=== PATIENT | female | born 1940 | race African-American/Black ===

== ENCOUNTER 2021-08-27 03:59 | Inpatient (IN) | payer MEDICARE, BC ==
[~2021-08-27] VITALS: Ht 180.3 cm; Wt 59.9 kg
[~2021-08-27 03:59] MED LIST: ASPI-1497 PO; LABE300T3 PO; VALS320T2 PO
[2021-08-27] MEDS ORDERED: LABETALOL 5MG/ML SYR 20 MG/4 ML SYRINGE IV ONE ×2 (05:30→11:45)
[2021-08-27 05:53] LABS: BASOPHILS % 0.9 % (0.0-2.0); EOSINOPHILS % 3.5 % (0.0-5.0); HEMATOCRIT. 34.9 % (36.0-48.0); HEMOGLOBIN. 11.2 g/dL (12.0-16.0); LYMPHOCYTES % 34.1 % (20.0-50.0); MEAN CORPUSCULAR HEMOGLOBIN 28.6 pg (28.0-32.0); MEAN CORPUSCULAR VOLUME 89.1 fL (81.0-99.0); MEAN PLATELET VOLUME 9.1 fl (7.4-10.4); MONOCYTES % 9.9 % (2.0-8.0); NEUTROPHILS % 51.6 % (40.0-76.0); PLATELET 279 x1000/uL (130-400); RED BLOOD CELL COUNT 3.91 mill/uL (4.2-5.4); RED CELL DISTRIBUTION WIDTH 16.6 % (11.6-14.6)
[2021-08-27 06:06] LABS: CHLORIDE 106 mEq/L (98-107)
[2021-08-27 06:21] LABS: T4 FREE 1.11 ng/dL (0.76-1.46)
[2021-08-27 12:00] VITALS: BP 187/90
[2021-08-27] MEDS ORDERED: CLONIDINE 0.1MG TABLET PO PRN (12:15)
[2021-08-27] MEDS ORDERED: ONDANSETRON HCL 4MG/2ML INJ IV PRN (12:15)
[2021-08-27] MEDS ORDERED: CARVEDILOL 12.5MG TABLET PO SCH (12:30)
[2021-08-27] MEDS ORDERED: POTASSIUM CHLORIDE 20MEQ TABLET SR PO SCH (12:30)
[2021-08-27] MEDS ORDERED: BENAZEPRIL 10MG TABLET PO SCH (12:30)
[2021-08-27] MEDS ORDERED: ENOXAPARIN 40MG/0.4ML SYR SUBCUT SCH (13:00)
[2021-08-27] MEDS ORDERED: NALOXONE HCL 0.4MG/ML VIAL IV PRN (13:00)
[2021-08-27] MEDS: ASPIRIN 81MG TABLET PO SCH (13:50)
[2021-08-27] MEDS ORDERED: PNEUMOCOCCAL VACCINE IM ONE (14:30)
[2021-08-27 15:16] VITALS: BP 187/90
[2021-08-27] MEDS ORDERED: ALLO100T PO (15:41)
[2021-08-27] MEDS ORDERED: FAMO20TA8 PO (15:41)
[2021-08-27] MEDS ORDERED: METO-396 PO (15:41)
[2021-08-27] MEDS ORDERED: DOCU100T PO (15:41)
[2021-08-27] MEDS ORDERED: LORA2ORA5 PO (15:41)
[2021-08-27] MEDS ORDERED: HYOS-26 MT (15:41)
[2021-08-27] MEDS ORDERED: TOPUD PO (15:41)
[2021-08-27] MEDS ORDERED: AMLO10TA80 PO (15:41)
[2021-08-27] MEDS ORDERED: APIX5TAB PO (15:41)
[2021-08-27] MEDS ORDERED: MULT-1116 MT (15:41)
[2021-08-27] MEDS ORDERED: MIRT-90 PO (15:41)
[2021-08-27] MEDS ORDERED: LOSA50TA41 PO (15:41)
[2021-08-27] MEDS ORDERED: MELA2.5T PO (15:41)
[2021-08-27] MEDS ORDERED: THIA100T88 PO (15:41)
[2021-08-27] MEDS ORDERED: HYOS-26 PO (15:41)
[2021-08-27 15:42] LABS: INR 1.1; PROTHROMBIN TIME 11.3 sec (9.6-11.0)
[2021-08-27 16:00] VITALS: BP 180/97
[2021-08-27 16:20] LABS: CREATINE KINASE 23 IU/L (26-192); CREATINE KINASE MB FRACTION < 1.0 ng/mL (0.5-3.6)
[2021-08-27] MEDS: ALLOPURINOL 100 MG TABLET PO SCH (16:49)
[2021-08-27] MEDS: CLONIDINE 0.1MG TABLET PO PRN (16:49)
[2021-08-27] MEDS: AMLODIPINE 10MG TABLET PO SCH (16:50)
[2021-08-27] MEDS: LORAZEPAM 0.5MG TABLET PO PRN (16:51)
[2021-08-27] MEDS: MIRTAZAPINE 15MG TABLET PO SCH (16:56)
[2021-08-27] MEDS ORDERED: MIRTAZAPINE 30MG TABLET PO SCH (17:00)
[2021-08-27 20:00] VITALS: BP 139/74
[2021-08-27] MEDS: ATORVASTATIN CALCIUM 40MG TABLET PO SCH (20:13)
[2021-08-27] MEDS: LABETALOL HCL 300MG TABLET PO SCH (20:14)
[2021-08-27] MEDS ORDERED: RISPERIDONE 0.25MG TABLET PO SCH (21:00)
[2021-08-28] VITALS: BP 107/58
[2021-08-28 00:45] LABS: CREATINE KINASE 28 IU/L (26-192); CREATINE KINASE MB FRACTION < 1.0 ng/mL (0.5-3.6)
[2021-08-28 04:00] VITALS: BP 123/72
[2021-08-28 08:00] VITALS: BP 129/78
[2021-08-28] MEDS ORDERED: PNEUMOCOCCAL 23-VAL P-SAC VAC 0.5 ML IM ONE (09:00)
[2021-08-28] MEDS: ASPIRIN 81MG TABLET PO SCH (09:41)
[2021-08-28] MEDS: LABETALOL HCL 300MG TABLET PO SCH ×2 (09:41→20:00)
[2021-08-28] MEDS: APIXABAN 5 MG TABLET PO SCH ×2 (09:41→17:15)
[2021-08-28] MEDS: MIRTAZAPINE 15MG TABLET PO SCH (09:42)
[2021-08-28] MEDS: FAMOTIDINE 20MG TABLET PO SCH (09:42)
[2021-08-28] MEDS: ALLOPURINOL 100 MG TABLET PO SCH (09:42)
[2021-08-28] MEDS: AMLODIPINE 10MG TABLET PO SCH (09:44)
[2021-08-28 12:00] VITALS: BP 104/67
[2021-08-28 13:19] LABS: BASOPHILS % 1.1 % (0.0-2.0); EOSINOPHILS % 2.4 % (0.0-5.0); HEMATOCRIT. 29.6 % (36.0-48.0); HEMOGLOBIN. 9.7 g/dL (12.0-16.0); LYMPHOCYTES % 26.9 % (20.0-50.0); MEAN CORPUSCULAR HEMOGLOBIN 28.8 pg (28.0-32.0); MEAN CORPUSCULAR VOLUME 87.5 fL (81.0-99.0); MEAN PLATELET VOLUME 9.6 fl (7.4-10.4); MONOCYTES % 9.1 % (2.0-8.0); NEUTROPHILS % 60.5 % (40.0-76.0); PLATELET 268 x1000/uL (130-400); RED BLOOD CELL COUNT 3.38 mill/uL (4.2-5.4); RED CELL DISTRIBUTION WIDTH 16.2 % (11.6-14.6)
[2021-08-28 13:38] LABS: CHLORIDE 108 mEq/L (98-107)
[2021-08-28 13:52] LABS: HDL CHOLESTEROL 38 mg/dL (40-59); LDL CHOLESTEROL 61 mg/dL (5-100)
[2021-08-28 16:00] VITALS: BP 168/76
[2021-08-28] MEDS: CLONIDINE 0.1MG TABLET PO PRN (17:15)
[2021-08-28] MEDS: LORAZEPAM 0.5MG TABLET PO PRN (19:41)
[2021-08-28] MEDS: RISPERIDONE 0.25MG TABLET PO SCH (19:58)
[2021-08-28 20:00] VITALS: BP 155/65
[2021-08-28] MEDS: HYDROCODONE/ACETAMINOPHEN 5/325MG TABLET PO PRN (20:00)
[2021-08-28] MEDS: ATORVASTATIN CALCIUM 40MG TABLET PO SCH (20:00)
[2021-08-29] VITALS (7 sets, daily range): BP systolic 130–199; BP diastolic 60–101
[2021-08-29 07:02] LABS: EOSINOPHILS % 5.3 % (0.0-5.0); HEMATOCRIT. 32.2 % (36.0-48.0); HEMOGLOBIN. 10.4 g/dL (12.0-16.0); MEAN CORPUSCULAR HEMOGLOBIN 28.2 pg (28.0-32.0); MEAN CORPUSCULAR VOLUME 87.1 fL (81.0-99.0); MEAN PLATELET VOLUME 9.6 fl (7.4-10.4); MONOCYTES % 10.8 % (2.0-8.0); NEUTROPHILS % 47.9 % (40.0-76.0); PLATELET 260 x1000/uL (130-400); RED CELL DISTRIBUTION WIDTH 16.7 % (11.6-14.6)
[2021-08-29 08:51] LABS: CHLORIDE 108 mEq/L (98-107)
[2021-08-29] MEDS: AMLODIPINE 10MG TABLET PO SCH ×2 (09:00→10:22)
[2021-08-29] MEDS: ALLOPURINOL 100 MG TABLET PO SCH ×2 (09:00→10:15)
[2021-08-29] MEDS: APIXABAN 5 MG TABLET PO SCH ×3 (09:00→16:23)
[2021-08-29] MEDS: LABETALOL HCL 300MG TABLET PO SCH ×3 (09:00→20:43)
[2021-08-29] MEDS: FAMOTIDINE 20MG TABLET PO SCH ×2 (09:00→10:20)
[2021-08-29] MEDS: RISPERIDONE 0.25MG TABLET PO SCH ×2 (09:00→10:17)
[2021-08-29] MEDS: ASPIRIN 81MG TABLET PO SCH ×2 (09:00→10:14)
[2021-08-29] MEDS ORDERED: POTASSIUM CHLORIDE 20MEQ/PACKET PO NR (15:15)
[2021-08-29] MEDS: CLONIDINE 0.1MG TABLET PO PRN (16:36)
[2021-08-29] MEDS ORDERED: CLONIDINE HCL 0.1MG/24HR PATCH TD SCH (20:00)
[2021-08-29] MEDS: ATORVASTATIN CALCIUM 40MG TABLET PO SCH (20:42)
[2021-08-29] MEDS: MIRTAZAPINE 15MG TABLET PO SCH (20:42)
[2021-08-30] VITALS: BP 157/94
[2021-08-30 04:00] VITALS: BP 164/87
[2021-08-30] MEDS: HYDROCODONE/ACETAMINOPHEN 5/325MG TABLET PO PRN (04:08)
[2021-08-30 06:46] LABS: BASOPHILS % 0.5 % (0.0-2.0); HEMATOCRIT. 34.1 % (36.0-48.0); HEMOGLOBIN. 11.1 g/dL (12.0-16.0); LYMPHOCYTES % 22.5 % (20.0-50.0); MEAN CORPUSCULAR HEMOGLOBIN 28.4 pg (28.0-32.0); MEAN CORPUSCULAR VOLUME 87.1 fL (81.0-99.0); MONOCYTES % 8.4 % (2.0-8.0); NEUTROPHILS % 64.6 % (40.0-76.0); PLATELET 290 x1000/uL (130-400); RED BLOOD CELL COUNT 3.92 mill/uL (4.2-5.4); RED CELL DISTRIBUTION WIDTH 16.6 % (11.6-14.6)
[2021-08-30 07:30] LABS: CHLORIDE 107 mEq/L (98-107)
[2021-08-30 08:20] VITALS: BP 181/75
[2021-08-30] MEDS: LABETALOL HCL 300MG TABLET PO SCH ×2 (09:57→21:21)
[2021-08-30] MEDS: AMLODIPINE 10MG TABLET PO SCH (09:57)
[2021-08-30] MEDS: FAMOTIDINE 20MG TABLET PO SCH (09:57)
[2021-08-30] MEDS: ALLOPURINOL 100 MG TABLET PO SCH (09:58)
[2021-08-30] MEDS: RISPERIDONE 0.25MG TABLET PO SCH (09:58)
[2021-08-30] MEDS: ASPIRIN 81MG TABLET PO SCH (09:58)
[2021-08-30] MEDS: APIXABAN 5 MG TABLET PO SCH ×2 (09:58→16:44)
[2021-08-30 12:30] VITALS: BP 127/54
[2021-08-30] MEDS ORDERED: LABE300T3 PO (13:25)
[2021-08-30] MEDS ORDERED: MIRT-89 PO (13:25)
[2021-08-30] MEDS ORDERED: LIP40 PO (13:25)
[2021-08-30 16:30] VITALS: BP 146/73
[2021-08-30] MEDS ORDERED: POTASSIUM CHLORIDE 20MEQ TABLET SR PO NR (17:30)
[2021-08-30 20:00] VITALS: BP 169/78
[2021-08-30] MEDS: ATORVASTATIN CALCIUM 40MG TABLET PO SCH (21:20)
[2021-08-30] MEDS: MIRTAZAPINE 15MG TABLET PO SCH (21:21)
[2021-08-31] VITALS: BP 117/62
[2021-08-31 04:00] VITALS: BP 151/83
[2021-08-31 08:00] VITALS: BP 168/98
[2021-08-31] MEDS: FAMOTIDINE 20MG TABLET PO SCH (09:30)
[2021-08-31] MEDS: RISPERIDONE 0.25MG TABLET PO SCH (09:30)
[2021-08-31] MEDS: APIXABAN 5 MG TABLET PO SCH ×2 (09:30→17:00)
[2021-08-31] MEDS: AMLODIPINE 10MG TABLET PO SCH (09:30)
[2021-08-31] MEDS: ASPIRIN 81MG TABLET PO SCH (09:30)
[2021-08-31] MEDS: ALLOPURINOL 100 MG TABLET PO SCH (09:32)
[2021-08-31] MEDS: LABETALOL HCL 300MG TABLET PO SCH (09:32)
[2021-08-31 12:38] VITALS: BP 158/70
[2021-08-31 15:53] VITALS: BP 130/64
[2021-08-31 16:21] VITALS: BP 130/64
== END 2021-08-31 17:58 | disposition home health service (06) | DRG 305 ==
LOC: ER 03:59 → 6WST 08:54 → ENRESERV 10:10
PROVIDERS: ADMIT Family Medicine; ATTEND Family Medicine
DX: I16.1 Hypertensive emergency (principal); E46 Unspecified protein-calorie malnutrition; Z68.1 Body mass index [BMI] 19.9 or less, adult; R07.89 Other chest pain; Z20.822 Contact with and (suspected) exposure to COVID-19; I25.10 Atherosclerotic heart disease of native coronary artery without angina pectoris; E87.6 Hypokalemia; E78.5 Hyperlipidemia, unspecified; E11.9 Type 2 diabetes mellitus without complications; M10.9 Gout, unspecified; I10 Essential (primary) hypertension; I70.1 Atherosclerosis of renal artery; F02.80 Dementia in other diseases classified elsewhere, unspecified severity, without behavioral disturbance, psychotic disturbance, mood disturbance, and anxiety; Z79.82 Long term (current) use of aspirin; Z79.899 Other long term (current) drug therapy; Z86.73 Personal history of transient ischemic attack (TIA), and cerebral infarction without residual deficits; R63.0 Anorexia
CPT/HCPCS: 36415; 71045; 80048; 80053; 80061; 82550; 82553; 83880; 84439; 84443; 84484; 85025; 87426; 90732; 93005; 93306; 99291; J1650; J3490